=== PATIENT | female | born 1950 | race American Indian/Alaskan Native ===

== ENCOUNTER 2017-08-13 14:36 | Emergency (ER) | payer BC ==
[2017-08-13 14:36] VITALS: BMI 42.0
[2017-08-13 15:03] VITALS: RESP 20; TEMP 98.6
[2017-08-13] MEDS ORDERED: Oxycodone/Acetaminophen 5/325 mg Tab PO STA (15:35)
--- NOTE | 2017-08-13 16:03 | ED PDOC ---
Arrival/HPI - General Chief Complaint: Lower Extremity Problem/Injury Time Seen by Provider: 08/13/17 15:35 Historian: Patient - History of Present Illness Narrative History of Present Illness (Text): 08/13/17 15:59 66-year-old female presents today with a 5 day history of left leg pain. Patient states she has pain in the left hip as well as the left thigh and calf. Patient denies fevers or chills. She denies any recent trauma or injury. Patient states she has a tingling sensation in the left great toe. Patient states she's been taking Naprosyn for pain without improvement. Patient denies back pain c/o shooting pain intermittently in left buttock. No abdominal pain. Denies fevers or chills. No other complaints. Time/Duration: Other (5 days) Quality: Aching, Tightness Severity Level: 5 Past Medical History - Provider Review Nursing Documentation Reviewed: Yes - Travel History Have you recently traveled outside [place] w/in the past 3 mons?: No - Infectious Disease Hx of Infectious Diseases: None - Reproductive Menopause: Yes - Cardiac Hx Hypertension: Yes - Pulmonary Hx Respiratory Disorders: No - Neurological Hx Migraine: Yes - HEENT Hx HEENT Disorder: No - Renal Hx Renal Disorder: No - Endocrine/Metabolic Hx Diabetes Mellitus Type 1: Yes - Hematological/Oncological Hx Blood Disorders: No - Integumentary Hx Dermatological Disorder: No - Musculoskeletal/Rheumatological Hx Falls: Yes - Gastrointestinal Hx Gastrointestinal Disorders: No - Genitourinary/Gynecological Hx Genitourinary Disorders: No Other/Comment: ovarian tumor surgery - Psychiatric Hx Psychophysiologic Disorder: No Hx Substance Use: No - Surgical History Other/Comment: oophrectomy - Anesthesia Hx Anesthesia: Yes Hx Anesthesia Reactions: No Hx Malignant Hyperthermia: No - Suicidal Assessment Feels Threatened In Home Enviroment: No Family/Social History - Physician Review Nursing Documentation Reviewed: Yes Family/Social History: Unknown Family HX Smoking Status: Former Smoker Hx Alcohol Use: No Hx Substance Use: No Allergies/Home Meds Allergies/Adverse Reactions: Allergies No Known Allergies Allergy (Verified 08/13/17 15:03) Home Medications: Home Meds Medication Instructions Recorded Confirmed Cilostazol 100 mg PO BID 04/28/13 08/13/17 Glimepiride 4 mg PO BID 04/28/13 08/13/17 Hydralazine 50 mg PO BID 04/28/13 08/13/17 Bisoprolol/HCTZ [Ziac 5 MG-6.25 MG] 1 tab PO DAILY 07/18/16 08/13/17 Naproxen [Naprosyn] 500 mg PO BID 07/18/16 08/13/17 Ranolazine [Ranexa] 500 mg PO BID PRN 07/18/16 08/13/17 metFORMIN [glucOPHAGE] 500 mg PO BID 07/18/16 08/13/17 Review of Systems - Review of Systems Constitutional: absent: Fatigue, Fevers Respiratory: absent: SOB, Cough Cardiovascular: absent: Chest Pain, Palpitations Gastrointestinal: absent: Abdominal Pain, Nausea, Vomiting Genitourinary Female: absent: Dysuria, Frequency, Hematuria Musculoskeletal: Arthralgias (left leg pain, left hip pain). absent: Back Pain , Neck Pain Skin: absent: Rash, Pruritis Neurological: absent: Headache, Dizziness Psychiatric: absent: Anxiety, Depression Physical Exam Vital Signs Reviewed: Yes Vital Signs Temp Pulse Resp BP Pulse Ox 08/13/17 18:39 80 20 134/78 99 08/13/17 14:58 98.6 F 85 20 155/84 H 98 Temperature: Afebrile Blood Pressure: Hypertensive Pulse: Regular Respiratory Rate: Normal Appearance: Positive for: Well-Appearing, Non-Toxic, Comfortable Pain Distress: None Mental Status: Positive for: Alert and Oriented X 3 - Systems Exam Head: Present: Atraumatic Neck: Present: Normal Range of Motion Respiratory/Chest: Present: Clear to Auscultation, Good Air Exchange. No: Respiratory Distress, Accessory Muscle Use Cardiovascular: Present: Regular Rate and Rhythm, Normal S1, S2. No: Murmurs Abdomen: No: Tenderness, Distention, Rebound, Guarding Back: Present: Normal Inspection. No: CVA Tenderness, Midline Tenderness, Paraspinal Tenderness Upper Extremity: Present: Normal Inspection Lower Extremity: Present: Normal Inspection, CALF TENDERNESS, NORMAL PULSES, Normal ROM, Tenderness (left leg; + ttp over anterior thigh; full rom of hip with pain, full rom of knee; + calf tenderness; no erythema; no edema. sensation and distal pulses intact. cap refill <2. ), Neurovascularly Intact, Capillary Refill < 2 s, Other (no erythema noted to groin, no lymphadenopathy; + ttp over left sciatic foramen). No: Swelling, Erythema, Deformity, Temperature Abnormalties Neurological: Present: GCS=15, Speech Normal, Motor Func Grossly Intact, Normal Sensory Function, Normal Cerebellar Funct, Norm Deep Tendon Reflexes Skin: Present: Warm, Dry, Normal Color. No: Rashes Psychiatric: Present: Alert, Oriented x 3 Medical Decision Making ED Course and Treatment: 08/13/17 16:03 66-year-old female with history of nontraumatic left leg pain. shooting from buttock into thigh intermittent. Alert and Oriented in no distress stable vital signs Percocet given for pain X-ray of the left hip:Findings: Examination limited by habitus. Degenerative changes of the included lower lumbar spine. Bilateral hip joint space narrowing. No acute displaced fracture or dislocation identified. Sacroiliac joints appear intact. Soft tissues appear unremarkable. No evidence of radiopaque foreign body. Vascular calcifications. Pelvic calcifications, likely phleboliths. Nonspecific calcification within the left abdomen at the L3-L4 level measuring approximately 8 mm. Impression: No acute displaced fracture or dislocation evident. If high clinical index of suspicion, suggest cross-sectional imaging for further evaluation. Otherwise, if symptoms persist or if there is continued clinical concern, x-ray follow-up in 7-10 days should be considered. Additional findings as above. Venous duplex of the left lower extremity: no dvt Patient reassessment: pt feeling better after medications. discussed all results in depth with patient; advised f/u with PMD and orthopedist. advised immediate return if symptoms worsen,persist or if new symptoms develop. Patient verbalizes understanding of discharge instructions and need for immediate followup. all aspects of this case were discussed the attending of record. impression; leg pain, hip pain Motrin every 6 hours as needed for pain Flexeril one tablet every 8 hours as needed for muscle spasms: May cause drowsiness Percocet one tablet every 6 hours as needed for moderate to severe pain: May cause drowsiness Followup with the orthopedist within the next 2 days Followup with primary care physician within the next 2 days Return if symptoms worsen persist or if new symptoms develop - RAD Interpretation Radiology Orders: 08/13/17 15:35 DUPLEX LOWER EXTRM VEIN LEFT [US] Stat 08/13/17 15:36 Hip Left [HIP MIN 2V W/ PELVIS LT] [RAD] Stat - Medication Orders Current Medication Orders: Discontinued Medications Ketorolac Tromethamine (Toradol) 60 mg IM STAT STA Stop: 08/13/17 15:36 Last Admin: 08/13/17 16:07 Dose: 60 mg MAR Pain Assessment Document 08/13/17 16:07 EQ (Rec: 08/13/17 16:07 EQ [facility] [id number] Pain Reassessment Is this a pain reassessment? No Sleep Is patient sleeping during reassessment? No Presence of Pain Presence of Pain Yes IM Administration Charges Document 08/13/17 16:07 EQ (Rec: 08/13/17 16:07 EQ [place] [id number]) Charges for Administration # of IM Administrations 1 Oxycodone/Acetaminophen (Percocet 5/325 Mg Tab) 1 tab PO STAT STA Stop: 08/13/17 15:36 Last Admin: 08/13/17 16:07 Dose: 1 tab MAR Pain Assessment Document 08/13/17 16:07 EQ (Rec: 08/13/17 16:07 EQ [place] [id number]) Pain Reassessment Is this a pain reassessment? No Sleep Is patient sleeping during reassessment? No Presence of Pain Presence of Pain Yes Disposition/Present on Arrival - Present on Arrival Any Indicators Present on Arrival: No History of DVT/PE: No History of Uncontrolled Diabetes: No Urinary Catheter: No History of Decub. Ulcer: No History Surgical Site Infection Following: None - Disposition Have Diagnosis and Disposition been Completed?: Yes Diagnosis: Leg pain Disposition: HOME/ ROUTINE Disposition Time: 18:14 Patient Plan: Discharge Condition: GOOD Discharge Instructions (ExitCare): Leg Pain (ED) Additional Instructions: Motrin every 6 hours as needed for pain Flexeril one tablet every 8 hours as needed for muscle spasms: May cause drowsiness Percocet one tablet every 6 hours as needed for moderate to severe pain: May cause drowsiness Followup with the orthopedist within the next 2 days Followup with primary care physician within the next 2 days Return if symptoms worsen persist or if new symptoms develop Prescriptions: Cyclobenzaprine [Cyclobenzaprine HCl] 10 mg PO Q8 #10 tab Ibuprofen [Motrin] 600 mg PO Q6H PRN #20 tab PRN Reason: pain/fever reduction oxyCODONE/Acetaminophen [Percocet 5/325 mg Tab] 1 tab PO Q6H PRN #6 tab PRN Reason: moderate to severe pain Referrals: Fernandes,Edelmira I, MD [Staff Provider] - Follow up with primary Anirudh Adame DO [Staff Provider] - Follow up with primary Adrián Marroquin MD [Staff Provider] - Follow up with primary Forms: [employer] (B[place]ladeshi), WORK NOTE
--- NOTE | 2017-08-13 17:04 | RAD ---
Indication: hip pain/leg pain Left hip with pelvis radiographs Comparison: None available Findings: Examination limited by habitus. Degenerative changes of the included lower lumbar spine. Bilateral hip joint space narrowing. No acute displaced fracture or dislocation identified. Sacroiliac joints appear intact. Soft tissues appear unremarkable. No evidence of radiopaque foreign body. Vascular calcifications. Pelvic calcifications, likely phleboliths. Nonspecific calcification within the left abdomen at the L3-L4 level measuring approximately 8 mm. Impression: No acute displaced fracture or dislocation evident. If high clinical index of suspicion, suggest cross-sectional imaging for further evaluation. Otherwise, if symptoms persist or if there is continued clinical concern, x-ray follow-up in 7-10 days should be considered. Additional findings as above.
[2017-08-13 18:40] VITALS: BP 134/78; PULSE 80; O2SAT 99
--- NOTE | 2017-08-14 09:15 | US ---
PROCEDURE: Left lower extremity venous US HISTORY: Leg pain and swelling. Evaluate for DVT. PHYSICIAN(S): Cecilio Nagy MD. TECHNIQUE: Duplex sonography and color-flow Doppler with graded compression were used to evaluate the deep venous system of the left lower extremity. FINDINGS: The visualized deep venous system of the left lower extremity is sonographically normal and compressible. Normal wave forms and augmentation are seen. There is no sonographic evidence for deep venous thrombosis in the visualized segments of the left lower extremity. IMPRESSION: 1. No sonographic evidence for deep venous thrombosis in the visualized segments of the left lower extremity.
== END 2017-08-13 18:40 | disposition home or self-care (01) ==
LOC: ED 14:36
DX: M79.605 Pain in left leg (principal); I10 Essential (primary) hypertension; Z87.891 Personal history of nicotine dependence
CPT/HCPCS: 73502; 93971; 96372; 99283; J1885

== ENCOUNTER 2017-10-24 17:34 | Emergency (ER) | payer MEDICARE, BC ==
[2017-10-24 17:34] VITALS: BMI 42.0
--- NOTE | 2017-10-24 19:58 | ED PDOC ---
Arrival/HPI - General Chief Complaint: Headache Time Seen by Provider: 10/24/17 17:52 Historian: Patient - History of Present Illness Narrative History of Present Illness (Text): 10/24/17 19:54 67yr old female presents today with head injury x 2 in the past 3 days. pt states 3 days ago she fell off a chair and hit her head. pt denies LOC at that time but states she felt dazed afterwards. pt states after the injury she felt dizzy. pt states since hitting her head she has felt dizzy and felt like occasionally she was having difficulty concentrating. pt states she was feeling dizzy for 2 days PRIOR to hitting her head. pt states to make things worse yesterday she bent over to pick something up and hit her head again. pt denies cp or sob. denies abdominal pain. pt c/o occasional nausea. pt denies neck or back pain. no other complaints. Past Medical History - Provider Review Nursing Documentation Reviewed: Yes - Travel History Have you recently traveled outside [place] w/in the past 3 mons?: No - Infectious Disease Hx of Infectious Diseases: None - Cardiac Hx Cardiac Disorders: Yes Hx Hypertension: Yes - Pulmonary Hx Respiratory Disorders: No - Neurological Hx Neurological Disorder: Yes Hx Headaches: Yes - HEENT Hx HEENT Disorder: No - Renal Hx Renal Disorder: No - Endocrine/Metabolic Hx Endocrine Disorders: Yes Hx Diabetes Mellitus Type 2: Yes - Hematological/Oncological Hx Blood Disorders: No - Integumentary Hx Dermatological Disorder: No - Musculoskeletal/Rheumatological Hx Musculoskeletal Disorders: Yes Hx Falls: Yes - Gastrointestinal Hx Gastrointestinal Disorders: No - Genitourinary/Gynecological Hx Genitourinary Disorders: No Other/Comment: ovarian tumor surgery - Psychiatric Hx Psychophysiologic Disorder: No Hx Substance Use: No - Surgical History Other/Comment: oophrectomy - Anesthesia Hx Anesthesia: Yes Hx Anesthesia Reactions: No Hx Malignant Hyperthermia: No - Suicidal Assessment Feels Threatened In Home Enviroment: No Family/Social History - Physician Review Nursing Documentation Reviewed: Yes Family/Social History: Unknown Family HX Smoking Status: Former Smoker Hx Alcohol Use: No Hx Substance Use: No Allergies/Home Meds Allergies/Adverse Reactions: Allergies No Known Allergies Allergy (Verified 10/24/17 17:48) Home Medications: Home Meds Medication Instructions Recorded Confirmed Cilostazol 100 mg PO BID 04/28/13 10/24/17 Glimepiride 4 mg PO BID 04/28/13 10/24/17 Hydralazine 50 mg PO BID 04/28/13 10/24/17 Bisoprolol/HCTZ [Ziac 5 MG-6.25 MG] 1 tab PO DAILY 07/18/16 10/24/17 Naproxen [Naprosyn] 500 mg PO BID 07/18/16 10/24/17 Ranolazine [Ranexa] 500 mg PO BID PRN 07/18/16 10/24/17 metFORMIN [glucOPHAGE] 500 mg PO BID 07/18/16 10/24/17 Review of Systems - Review of Systems Constitutional: absent: Fatigue, Fevers Eyes: absent: Vision Changes, Photophobia, Eye Pain ENT: absent: Sore Throat, Sinus Congestion Respiratory: absent: SOB, Cough Cardiovascular: absent: Chest Pain, Palpitations Gastrointestinal: absent: Abdominal Pain, Nausea, Vomiting Genitourinary Female: absent: Dysuria Musculoskeletal: absent: Arthralgias, Back Pain, Neck Pain Skin: absent: Rash, Pruritis Neurological: Headache, Dizziness Psychiatric: absent: Anxiety, Depression, Suicidal Ideation Physical Exam Vital Signs Reviewed: Yes Vital Signs Temp Pulse Resp BP Pulse Ox 10/25/17 02:07 97.6 F 61 22 136/64 100 10/24/17 21:48 97.6 F 68 19 138/73 100 10/24/17 17:50 98.5 F 74 16 163/98 H 99 Temperature: Afebrile Blood Pressure: Hypertensive Pulse: Regular Respiratory Rate: Normal Appearance: Positive for: Well-Appearing, Non-Toxic, Comfortable Pain Distress: None Mental Status: Positive for: Alert and Oriented X 3 - Systems Exam Head: Present: Atraumatic. No: Tenderness Pupils: Present: PERRL Extroacular Muscles: Present: EOMI Conjunctiva: Present: Normal Ears: Present: Normal, NORMAL TM Mouth: Present: Moist Mucous Membranes Pharnyx: Present: Normal Nose (External): Present: Atraumatic Neck: Present: Normal Range of Motion, Trachea Midline. No: MIDLINE TENDERNESS , Paraspinal Tenderness Respiratory/Chest: Present: Clear to Auscultation, Good Air Exchange. No: Respiratory Distress, Accessory Muscle Use Cardiovascular: Present: Regular Rate and Rhythm, Normal S1, S2. No: Murmurs Abdomen: No: Tenderness, Distention, Rebound, Guarding Back: Present: Normal Inspection. No: Midline Tenderness, Paraspinal Tenderness Upper Extremity: Present: Normal ROM Lower Extremity: Present: Normal ROM Neurological: Present: GCS=15, Speech Normal Skin: Present: Warm, Dry, Normal Color. No: Rashes Psychiatric: Present: Alert, Oriented x 3 Medical Decision Making ED Course and Treatment: 10/24/17 20:02 67yr old female with headache and dizziness. pt with dizziness prior to fall 3 days ago. continued dizziness. ct head: FINDINGS: Brain: Minimal atrophy. No intracranial hemorrhage. No mass. No edema. Ventricles: No hydrocephalus. Bones/joints: No acute fracture. Soft tissues: Unremarkable. Vasculature: Atherosclerotic disease of intracranial arteries. Sinuses: No acute sinusitis. Mastoid air cells: No mastoid effusion. Orbits: Unremarkable as visualized. IMPRESSION: 1. No intracranial hemorrhage. 2. Incidental/non-acute findings are described above. 10/24/17 21:38 pt reassessment; pt non toxic well appearing; no distress. 10/24/17 23:56 cbc; wnl cmp; glucose 154 trop; wnl cxr; wnl ekg; normal sinus rhythm at [address] elevations LVH QTC 418 pt with continued dizziness. refusing medications for pain; c/o dizziness prior to fall. will admit observational status for dizziness. asa given pO Case discussed with Dr. Casarez accepts observational status admission to telemetry for dizziness all aspects of this case were discussed the attending of record. Impression: Dizziness Admit observational status - Lab Interpretations Lab Results: 10/24/17 23:11 10/24/17 23:11 Lab Results 10/24/17 23:11: WBC 7.6, RBC 4.24, Hgb 12.2, Hct 36.9, MCV 87.0, MCH 28.8, MCHC 33.1, RDW 12.7, Plt Count 227, MPV 10.4, Gran % 37.0 L, Lymph % (Auto) 52.9 H, [place] % (Auto) 8.4 H, Eos % (Auto) 1.6, Baso % (Auto) 0.1, Gran # 2.83, Lymph # ( Auto) 4.0 H, [place] # (Auto) 0.6, Eos # (Auto) 0.1, Baso # (Auto) 0.01 10/24/17 23:11: Sodium 139, Potassium 3.9, Chloride 98, Carbon Dioxide 27, Anion Gap 18, BUN 9, Creatinine 0.7, Est GFR ( Amer) > 60, Est GFR (Non- Af Amer) > 60, Random Glucose 154 H, Calcium 9.9, Total Bilirubin 0.4, AST 34, ALT 60 H, Alkaline Phosphatase 53, Lactate Dehydrogenase 374, Total Creatine Kinase 97, Troponin I < 0.01, Total Protein 7.5, Albumin 4.2, Globulin 3.3, Albumin/Globulin Ratio 1.3 - RAD Interpretation Radiology Orders: 10/24/17 18:22 HEAD W/O CONTRAST [CT] Stat 10/24/17 21:56 CHEST PORTABLE [RAD] Stat - Medication Orders Current Medication Orders: Discontinued Medications Aspirin (Aspirin) 325 mg PO STAT STA Stop: 10/24/17 23:57 Last Admin: 10/25/17 02:07 Dose: 325 mg Disposition/Present on Arrival - Present on Arrival Any Indicators Present on Arrival: No History of DVT/PE: No History of Uncontrolled Diabetes: No Urinary Catheter: No History of Decub. Ulcer: No History Surgical Site Infection Following: None - Disposition Have Diagnosis and Disposition been Completed?: Yes Diagnosis: Dizziness Disposition: HOSPITALIZED Disposition Time: 01:36 Patient Plan: Observation Patient Problems: Current Active Problems Problem Status Onset Dizziness Acute Condition: FAIR
--- NOTE | 2017-10-24 21:17 | CT ---
EXAM: CT Head Without Intravenous Contrast CLINICAL HISTORY: 67 years old, female; Injury or trauma; Fall; Initial encounter; Blunt trauma (contusions or hematomas); Consciousness not specified; Additional info: Headache/dizziness/ head injury TECHNIQUE: Axial computed tomography images of the head/brain without intravenous contrast. All CT scans at this facility use one or more dose reduction techniques, viz.: automated exposure control; ma/kV adjustment per patient size (including targeted exams where dose is matched to indication; i.e. head); or iterative reconstruction technique. Coronal and sagittal reformatted images were created and reviewed. COMPARISON: CT - HEAD W/O CONTRAST 2016-07-18 20:33 FINDINGS: Brain: Minimal atrophy. No intracranial hemorrhage. No mass. No edema. Ventricles: No hydrocephalus. Bones/joints: No acute fracture. Soft tissues: Unremarkable. Vasculature: Atherosclerotic disease of intracranial arteries. Sinuses: No acute sinusitis. Mastoid air cells: No mastoid effusion. Orbits: Unremarkable as visualized. IMPRESSION: 1. No intracranial hemorrhage. 2. Incidental/non-acute findings are described above.
[2017-10-25 00:09] LABS: BASO # 0.01 K/mm3 (0.0-2.0); BASO % 0.1 % (0.0-3.0); EOS # 0.1 (0.0-0.7); EOS % 1.6 % (1.5-5.0); GRAN # 2.83 (1.4-6.5); HEMOGLOBIN 12.2 g/dL (12.0-16.0); LYMPH % 52.9 % (22.0-35.0); MEAN CORPUSCULAR HEMOGLOBIN 28.8 pg (25.0-35.0); MEAN CORPUSCULAR HGB CONC 33.1 g/dl (31.0-37.0); MEAN PLATELET VOLUME 10.4 fl (7.0-11.0); MONO # 0.6 (0.1-0.6); MONO % 8.4 % (1.0-6.0); RBC 4.24 10^6/uL (3.5-6.1); RED CELL DISTRIBUTION WIDTH 12.7 % (11.5-14.5); WHITE BLOOD COUNT 7.6 10^3/ul (4.5-11.0)
[2017-10-25 00:17] LABS: ALB/GLOB RATIO 1.3 (1.1-1.8); ALBUMIN 4.2 g/dL (3.0-4.8); ALT/SGPT 60 U/L (7-56); AST/SGOT 34 U/L (14-36); BLOOD UREA NITROGEN 9 mg/dL (7-21); CALCIUM 9.9 mg/dL (8.4-10.5); GFR AFRICAN-AMERICAN > 60; GFR NON-AFRICAN AMERICAN > 60
[2017-10-25 00:27] LABS: TROPONIN I < 0.01 ng/mL
[2017-10-25 02:49] LABS: URINE BILIRUBIN NEGATIVE (NEGATIVE); URINE BLOOD NEGATIVE (NEGATIVE); URINE GLUCOSE (UA) NEGATIVE (NEGATIVE); URINE LEUKOCYTE ESTERASE NEGATIVE Leu/uL (NEGATIVE); URINE NITRATE NEGATIVE (NEGATIVE); URINE PROTEIN NEGATIVE mg/dL (<30 mg/dL); URINE UROBILINOGEN 0.2 E.U./dL (<1 E.U./dL)
[2017-10-25 02:55] LABS: URINE APPEARANCE CLEAR (CLEAR); URINE COLOR YELLOW (YELLOW)
--- NOTE | 2017-10-25 08:56 | RAD ---
HISTORY: dizziness COMPARISON: No prior. FINDINGS: LUNGS: No active pulmonary disease. PLEURA: No significant pleural effusion identified, no pneumothorax apparent. CARDIOVASCULAR: Normal. OSSEOUS STRUCTURES: No significant abnormalities. VISUALIZED UPPER ABDOMEN: Rounded metallic radiodensities overlying the midline upper abdomen may reflect overlying coin pouch related artifact or may be the ingested foreign bodies. Clinically correlate. OTHER FINDINGS: None. IMPRESSION: No definite acute cardiopulmonary disease appreciable. Artifacts are noted overlying the epigastric region versus retained radiodense foreign bodies. Clinically correlate further.
--- NOTE | 2017-10-25 09:47 | CARD ---
APPROVED REPORT EKG Measurement Heart [id number] <Conclusion> Normal sinus rhythm Possible Left atrial enlargement Leftward axis
[2017-10-25] MEDS ORDERED: Non Formulary Medication (Bisoprolol/Hctz [Ziac 5-6.25 Mg] 1 TAB) PO SCH ×2 (10:00)
[2017-10-25] MEDS ORDERED: HYDRALAZINE 50 MG PO SCH (10:00)
[2017-10-25] MEDS ORDERED: CILOSTAZOL 100 MG PO SCH ×2 (10:00)
[2017-10-25] MEDS ORDERED: Cilostazol 100 mg Tab UD PO SCH (10:00)
[2017-10-25] MEDS ORDERED: GLIMEPIRIDE 4 MG PO SCH (10:00)
[2017-10-25 12:25] VITALS: RESP 18; O2SAT 100
[2017-10-25 12:27] VITALS: BP 105/57; PULSE 69; TEMP 98.1
--- NOTE | 2017-10-25 20:27 | HP ---
HISTORY OF PRESENT ILLNESS: I saw her resting comfortably in the emergency room. I was called down. She comes in with having a head injury 2 times in the past 3 days. She fell off a chair, hit her head. No loss of consciousness. She felt dazed afterwards, a little bit dizzy, difficulty concentrating. Two days prior to that, she also hit her head. She bent over backwards something to pick and hit her head again, so she is here with 2 head injuries in 3 days. PAST MEDICAL HISTORY: She has a history of hypertension, headaches, diabetes, falls, ovarian tumor surgery in the past, oophorectomy. FAMILY HISTORY: Unknown family history. SOCIAL HISTORY: Former smoker. No alcohol, no drugs. ALLERGIES: NO KNOWN DRUG ALLERGIES. MEDICATIONS: She takes cilostazol, glimepiride, hydralazine, naproxen, Ranexa, Glucophage. REVIEW OF SYSTEMS: No fatigue or fevers. No acute vision or hearing change. No photophobia. No eye pain. No sinus congestion. No shortness of breath or cough. No palpitations or chest pain. No abdominal pain, nausea or vomiting. No problems urinating. No arthralgias. No rashes or ulcers. Little headache and dizziness. No anxiety, depression, suicidal ideation. PHYSICAL EXAMINATION: GENERAL: Well-appearing, comfortable at this time. Alert and oriented x3. She slept fairly well last night. VITAL SIGNS: She has a 97.6 temp, 61 pulse, 22 respiratory rate down to 16 respiratory rate, 136/64 blood pressure, 100% O2 sat on room air. HEENT: Head is atraumatic, normocephalic. I do not see any bumps or bruises. Extraocular muscles are intact. Pupils are equal and reactive to light and accommodation. Throat is moist. NECK: Supple. HEART: Regular rate. LUNGS: Clear to auscultation. ABDOMEN: Soft, nontender. Positive bowel sounds. No guarding. No rebound. No CVA tenderness. EXTREMITIES: No edema. NEUROLOGIC: GCS is 15. Speech is normal. Tongue is midline. Equal strength bilaterally. Alert and oriented x3. LABORATORY DATA: She had a bunch of tests done. She had a CAT scan of the head, which showed no intracranial or immediate issues. She had a chest x-ray that is pending. ASSESSMENT AND PLAN: She will have consult with Cardiology and Neurology. She will be put back on the medications. She will get some physical therapy. If it is okay with PT, and Neurology and Cardiology, I will try and send her home later this afternoon. She is for observation with head trauma, but a negative CAT scan of the head. Hopefully she can be discharged later today. Ryder Casarez DO MTDD
--- NOTE | 2017-10-26 01:38 | CON ---
DATE: 10/25/2017 CARDIOLOGY CONSULTATION HISTORY OF PRESENT ILLNESS: The patient is a 67-year-old woman who slipped out of her chair and hit her head. This resulted in some dizziness. No loss of consciousness. PAST MEDICAL HISTORY: Includes a history of diabetes mellitus and hypertension. She is followed by a polysomnographic technician who has done yearly stress test that have all been negative. No previous cardiac history in the past. The patient denies chest pain, denies shortness of breath. SOCIAL HISTORY: The patient does not smoke. REVIEW OF SYSTEMS: Fourteen-point review of systems is reviewed. No cardiac symptomatology is noted. No angina. No shortness of breath. No dizziness. No edema in lower extremities. PHYSICAL EXAMINATION: VITAL SIGNS: Blood pressure is 132/76, heart rate in the 70s. NECK: Negative JVD. LUNGS: Without rales. HEART: S1, S2. EXTREMITIES: Without edema. LABORATORY DATA: Glucose is 154. Troponin is negative x1. The hemoglobin is 12.2. IMPRESSION: 1. Status post head trauma from an accident. 2. No evidence for cardiac disease. 3. Diabetes mellitus. 4. Hypertension. 5. Dizziness. Given these findings, no further cardiac workup is necessary in the emergency room. The patient has a scheduled followup with her polysomnographic technician next week. Cecilio Cloud MD
== END 2017-10-26 07:54 | disposition short-term general hospital (02) ==
LOC: ED 17:34 → UNDOADMOB 10-25 01:34 → ERH 10-25 01:34 → ED 10-26 07:54
DX: R42 Dizziness and giddiness (principal); I10 Essential (primary) hypertension; E11.9 Type 2 diabetes mellitus without complications; Z91.81 History of falling; Z87.891 Personal history of nicotine dependence

== ENCOUNTER 2018-02-22 19:38 | Observation (INO) | payer BC, MEDICARE ==
--- NOTE | 2018-02-22 20:24 | ED PDOC ---
Arrival/HPI - General Chief Complaint: Chest Pain Time Seen by Provider: 02/22/18 19:39 Historian: Patient - History of Present Illness Narrative History of Present Illness (Text): 02/22/18 20:10 Madelaine Hawthorne is a 67 year old female, whose past medical history includes hypertension, diabetes, CAD, and hyperlipidemia, who presents to the Emergency department complaining of chest discomfort yesterday and today. Patient also reports some discomfort to the left lateral neck and stomach discomfort. Patient denies any fever, chills, shortness of breath, cough, nausea, vomiting, diarrhea, back pain, headache, dizziness, or any other complaints. Symptom Onset: Gradual Symptom Course: Unchanged Activities at Onset: Light Context: Home Past Medical History - Provider Review Nursing Documentation Reviewed: Yes - Infectious Disease Hx of Infectious Diseases: None - Cardiac Hx Cardiac Disorders: Yes Hx Hypertension: Yes - Pulmonary Hx Respiratory Disorders: No - Neurological Hx Neurological Disorder: Yes Hx Headaches: Yes - HEENT Hx HEENT Disorder: No - Renal Hx Renal Disorder: No - Endocrine/Metabolic Hx Endocrine Disorders: Yes Hx Diabetes Mellitus Type 2: Yes - Hematological/Oncological Hx Blood Disorders: No - Integumentary Hx Dermatological Disorder: No - Musculoskeletal/Rheumatological Hx Musculoskeletal Disorders: Yes Hx Falls: Yes - Gastrointestinal Hx Gastrointestinal Disorders: No - Genitourinary/Gynecological Hx Genitourinary Disorders: No Other/Comment: ovarian tumor surgery - Psychiatric Hx Psychophysiologic Disorder: No Hx Substance Use: No - Surgical History Other/Comment: oophrectomy - Anesthesia Hx Anesthesia: Yes Hx Anesthesia Reactions: No Hx Malignant Hyperthermia: No - Suicidal Assessment Feels Threatened In Home Enviroment: No Family/Social History - Physician Review Nursing Documentation Reviewed: Yes Family/Social History: Unknown Family HX Smoking Status: Former Smoker Hx Alcohol Use: No Hx Substance Use: No Allergies/Home Meds Allergies/Adverse Reactions: Allergies No Known Allergies Allergy (Verified 10/24/17 17:48) Home Medications: Home Meds Medication Instructions Recorded Confirmed Naproxen [Naprosyn] 500 mg PO BID 07/18/16 02/22/18 Review of Systems - Physician Review All systems were reviewed & negative as marked: Yes - Review of Systems Constitutional: Normal. absent: Fevers Eyes: Normal ENT: Normal Respiratory: Normal. absent: SOB, Cough Cardiovascular: Chest Pain Gastrointestinal: Abdominal Pain. absent: Diarrhea, Nausea, Vomiting Genitourinary Female: Normal. absent: Dysuria, Frequency, Hematuria, Urine Output Changes Musculoskeletal: Neck Pain. absent: Back Pain Skin: Normal. absent: Rash Neurological: Normal. absent: Headache, Dizziness Endocrine: Normal Hemo/Lymphatic: Normal Psychiatric: Normal Physical Exam Vital Signs Reviewed: Yes Vital Signs Temp Pulse Resp Pulse Ox 02/22/18 20:03 98.2 F 64 18 99 Temperature: Afebrile Blood Pressure: Normal Pulse: Regular Respiratory Rate: Normal Appearance: Positive for: Well-Appearing, Non-Toxic, Comfortable Pain Distress: None Mental Status: Positive for: Alert and Oriented X 3 - Systems Exam Head: Present: Atraumatic, Normocephalic Pupils: Present: PERRL Extroacular Muscles: Present: EOMI Conjunctiva: Present: Normal Ears: Present: Normal, NORMAL TM, Normal Canal. No: Erythema, TM Bulging, Fluid , TM Perf Mouth: Present: Moist Mucous Membranes Pharnyx: Present: Normal. No: ERYTHEMA, EXUDATE, TONSILS ENLARGED, Peritonsilar Swelling, Uvular Deviation, Muffled/Hoarse Voice, Strider, Soft Palate/Uvular Edema Nose (External): Present: Atraumatic Nose (Internal): Present: Normal Inspection Neck: Present: Normal Range of Motion. No: Meningeal Signs, MIDLINE TENDERNESS , Paraspinal Tenderness Respiratory/Chest: Present: Clear to Auscultation, Good Air Exchange. No: Respiratory Distress, Accessory Muscle Use Cardiovascular: Present: Regular Rate and Rhythm, Normal S1, S2. No: Murmurs Abdomen: No: Tenderness, Distention, Peritoneal Signs Back: Present: Normal Inspection. No: CVA Tenderness, Midline Tenderness, Paraspinal Tenderness Upper Extremity: Present: Normal Inspection. No: Cyanosis, Edema Lower Extremity: Present: Normal Inspection, NORMAL PULSES, Normal ROM, Neurovascularly Intact, Capillary Refill < 2 s. No: Edema, CALF TENDERNESS, Cyanosis, Tenderness, Swelling, Erythema, Deformity, Temperature Abnormalties Neurological: Present: GCS=15, CN II-XII Intact, Speech Normal Skin: Present: Warm, Dry, Normal Color. No: Rashes Psychiatric: Present: Alert, Oriented x 3, Normal Insight, Normal Concentration Medical Decision Making ED Course and Treatment: 02/22/18 20:10 Impression: 67 year old female complaining of chest discomfort, left lateral neck discomfort , and stomach discomfort. Plan: -- EKG -- Chest X-ray -- Labs, cardiac enzymes, lipase -- Aspirin -- Reassess and disposition Prior Visits: Notes and results from previous visits were reviewed. On 10/24/2017, pt was seen in the Emergency department s/p head injury with dizziness. Pt was d/c home. Progress Notes: Reviewed EKG, NSR at [address]-segment elevations or depressions, no T-wave inversions, normal intervals. 02/22/18 22:37 Chest X-ray reviewed, shows no acute processes. 02/22/18 22:51 Case discussed with medical parasitologist workers' compensation commissioner, who is aware and agrees with plan. 02/22/18 22:[address] Leyva, who is aware and agrees with plan. Accepts pt in to the hospitalist service. Pt will go to Telemetry observation for chest pain. - Lab Interpretations Lab Results: 02/22/18 21:21 02/22/18 21:21 Lab Results 02/22/18 21:21: WBC 6.7, RBC 4.26, Hgb 12.0, Hct 36.0, MCV 84.5, MCH 28.2, MCHC 33.3, RDW 12.7, Plt Count 236, MPV 10.5 02/22/18 21:21: Sodium 140, Potassium 3.9, Chloride 99, Carbon Dioxide 28, Anion Gap 17, BUN 12, Creatinine 0.6 L, Est GFR ( Amer) > 60, Est GFR ( Non-Af Amer) > 60, Random Glucose 113 H, Calcium 9.7, Total Bilirubin 0.6, AST 37 H, ALT 51, Alkaline Phosphatase 74, Lactate Dehydrogenase 452, Total Creatine Kinase 135, Troponin I < 0.01, Total Protein 7.9, Albumin 4.4, Globulin 3.5, Albumin/Globulin Ratio 1.3, Lipase 142 02/22/18 21:21: PT 12.0, INR 1.05, APTT 27.5 - RAD Interpretation Radiology Orders: 02/22/18 20:16 CHEST PORTABLE [RAD] Stat Oven Operator: ED Physician - EKG Interpretation Interpreted by ED Physician: Yes Type: 12 lead EKG - Medication Orders Current Medication Orders: Discontinued Medications Aspirin (Aspirin) 325 mg PO ONCE STA Stop: 02/22/18 20:19 Morphine Sulfate (Morphine) 2 mg IVP STAT STA Stop: 02/22/18 22:48 Nitroglycerin (Nitro-Bid 2% Oint) 1 ea TOP ONCE STA Stop: 02/22/18 22:48 - Scribe Statement The provider has reviewed the documentation as recorded by the Scribe Ivone Garcia All medical record entries made by the Scribe were at my direction and personally dictated by me. I have reviewed the chart and agree that the record accurately reflects my personal performance of the history, physical exam, medical decision making, and the department course for this patient. I have also personally directed, reviewed, and agree with the discharge instructions and disposition. Disposition/Present on Arrival - Present on Arrival Any Indicators Present on Arrival: No History of DVT/PE: No History of Uncontrolled Diabetes: No Urinary Catheter: No History of Decub. Ulcer: No History Surgical Site Infection Following: None - Disposition Have Diagnosis and Disposition been Completed?: Yes Diagnosis: Chest pain Disposition: HOSPITALIZED Disposition Time: 22:57 Patient Plan: Observation Condition: STABLE Discharge Instructions (ExitCare): Chest Pain (ED) Referrals: Edelmira Fernandes MD [Primary Care Provider] - Follow up with primary Forms: Ice[employer]aker (Japanese)
[2018-02-22 21:27] LABS: MEAN CELL VOLUME 84.5 fl (80.0-105.0); MEAN CORPUSCULAR HEMOGLOBIN 28.2 pg (25.0-35.0); MEAN CORPUSCULAR HGB CONC 33.3 g/dl (31.0-37.0); MEAN PLATELET VOLUME 10.5 fl (7.0-11.0); RBC 4.26 10^6/uL (3.5-6.1); RED CELL DISTRIBUTION WIDTH 12.7 % (11.5-14.5); WHITE BLOOD COUNT 6.7 10^3/ul (4.5-11.0)
[2018-02-22 21:35] LABS: INR 1.05 (0.93-1.08); PARTIAL THROMBOPLASTIN TIME 27.5 Seconds (25.1-36.5)
[2018-02-22 21:37] LABS: ALB/GLOB RATIO 1.3 (1.1-1.8); ALBUMIN 4.4 g/dL (3.0-4.8); ALT/SGPT 51 U/L (7-56); AST/SGOT 37 U/L (14-36); BLOOD UREA NITROGEN 12 mg/dL (7-21); CALCIUM 9.7 mg/dL (8.4-10.5); GFR AFRICAN-AMERICAN > 60; GFR NON-AFRICAN AMERICAN > 60; LIPASE 142 U/L (23-300)
[2018-02-22 21:49] LABS: TROPONIN I < 0.01 ng/mL
[2018-02-22] MEDS ORDERED: Morphine 2 mg/ml ISec IVP STA (22:47)
[2018-02-22] MEDS ORDERED: Nitroglycerin 2% Ointment Foilpak UD TOP STA (22:47)
--- NOTE | 2018-02-22 23:36 | CP.PCM.HP ---
<Leticia Harrison - Last Filed: 02/22/18 23:52> History of Present Illness - History of Present Illness History of Present Illness: HPI: Patient is a 67 year old female with a past medical history of DM, HTN, HLD , CAD, heriated disks in neck, PUD, and PAD, who presents to the ED complaining of chest pain since early this morning. Patient says it started off as pain in her left neck radiating up into her left head. Patient says when she woke up this morning she rolled over onto her right side and started having the left sided chest pain. She describes it as sharp, intermittent, and 7/10 intensity. She denies exacerbating/remitting factors. Patient admits to associated abdominal pain and loose bowels (but not diarrhea) since that time. She denies fever, chills, dizziness, changes in vision/hearing, SOB, palpitations, cough, N &V, constipation, changes in urination, and calf pain/swelling. Specimen Technician: Dr. Greene Neurologist: Prasanth PMH: as above Meds: reviewed in EMR Allergies: NKDA SH: denies tobacco, alcohol, and drug use Present on Admission - Present on Admission Any Indicators Present on Admission: No Review of Systems - Review of Systems All systems: reviewed and no additional remarkable complaints except (as per HPI ) Past Patient History - Infectious Disease Hx of Infectious Diseases: None - Past Medical History & Family History Past Medical History?: Yes - Past Social History Smoking Status: Former Smoker - CARDIAC Hx Cardiac Disorders: Yes Hx Hypertension: Yes - PULMONARY Hx Respiratory Disorders: No - NEUROLOGICAL Hx Neurological Disorder: Yes - HEENT Hx HEENT Problems: No - RENAL Hx Chronic Kidney Disease: No - ENDOCRINE/METABOLIC Hx Endocrine Disorders: Yes Hx Diabetes Mellitus Type 2: Yes - HEMATOLOGICAL/ONCOLOGICAL Hx Blood Disorders: No - INTEGUMENTARY Hx Dermatological Problems: No - MUSCULOSKELETAL/RHEUMATOLOGICAL Hx Musculoskeletal Disorders: Yes Hx Falls: Yes - GASTROINTESTINAL Hx Gastrointestinal Disorders: No - GENITOURINARY/GYNECOLOGICAL Hx Genitourinary Disorders: No Other/Comment: ovarian tumor surgery - PSYCHIATRIC Hx Psychophysiologic Disorder: No Hx Substance Use: No - SURGICAL HISTORY Other/Comment: oophrectomy - ANESTHESIA Hx Anesthesia: Yes Hx Anesthesia Reactions: No Hx Malignant Hyperthermia: No Meds Allergies/Adverse Reactions: Allergies Allergy/AdvReac Type Severity Reaction Status Date / Time No Known Allergies Allergy Verified 10/24/17 17:48 Physical Exam - Constitutional Appears: Non-toxic, No Acute Distress - Head Exam Head Exam: ATRAUMATIC, NORMAL INSPECTION, NORMOCEPHALIC - Eye Exam Eye Exam: EOMI, Normal appearance, PERRL - ENT Exam ENT Exam: Mucous Membranes Moist - Neck Exam Neck exam: Positive for: Tenderness (paraspinal and midline tenderness throughout but worse on the left) - Respiratory Exam Respiratory Exam: Decreased Breath Sounds (due to body habitus), Clear to Auscultation Bilateral, NORMAL BREATHING PATTERN. absent: Accessory Muscle Use , Rales, Rhonchi, Wheezes, Respiratory Distress - Cardiovascular Exam Cardiovascular Exam: RRR, +S1, +S2. absent: Diastolic murmur, Gallop, Rubs, Systolic Murmur - GI/Abdominal Exam GI & Abdominal Exam: Normal Bowel Sounds, Soft, Tenderness (epigastric). absent : Distended, Mass Additional comments: obese abdomen - Extremities Exam Extremities exam: Positive for: normal capillary refill, normal inspection, pedal pulses present. Negative for: calf tenderness, pedal edema - Back Exam Back exam: NORMAL INSPECTION - Neurological Exam Neurological exam: Alert, Oriented x3 - Psychiatric Exam Psychiatric exam: Normal Affect, Normal Mood - Skin Skin Exam: Dry, Intact, Normal Color, Warm Results - Vital Signs Recent Vital Signs: Last Vital Signs Temp 98.2 F 02/22/18 20:03 Pulse 64 02/22/18 20:03 Resp 18 02/22/18 20:03 BP Pulse Ox 99 02/22/18 20:03 - Labs Result Diagrams: 02/22/18 21:21 02/22/18 21:21 Labs: Laboratory Results - last 24 hr 02/22/18 02/22/18 02/22/18 21:21 21:21 21:21 WBC 6.7 RBC 4.26 Hgb 12.0 Hct 36.0 MCV 84.5 MCH 28.2 MCHC 33.3 RDW 12.7 Plt Count 236 MPV 10.5 PT 12.0 INR 1.05 APTT 27.5 Sodium 140 Potassium 3.9 Chloride 99 Carbon Dioxide 28 Anion Gap 17 BUN 12 Creatinine 0.6 L Est GFR ( Amer) > 60 Est GFR (Non-Af Amer) > 60 Random Glucose 113 H Calcium 9.7 Total Bilirubin 0.6 AST 37 H ALT 51 Alkaline Phosphatase 74 Lactate Dehydrogenase 452 Total Creatine Kinase 135 Troponin I < 0.01 Total Protein 7.9 Albumin 4.4 Globulin 3.5 Albumin/Globulin Ratio 1.3 Lipase 142 Assessment & Plan - Assessment and Plan (Free Text) Assessment: Patient is a 67 year old female with a past medical history of DM, HTN, HLD, CAD , heriated disks in neck, PUD, and PAD, who presents with chest pain Plan: Chest Pain * Troponin in ER negative * ECG in ER shows NSR with no AT segment changes * f/u repeat trops and EKGs * f/u lipid panel * f/u TSH and free T4 * f/u CXR * Cardiology consulted (Dr. Cloud) - help appreciated * ASA 81 daily * Lipitor 40 mg HS History of DM * Accuchecks ACHS * ISS low dose * f/u HbA1c * f/u lipid panel * CC diet History of HTN * Continue home HCTZ 6.25 and hydralazine 50 mg BID * Lopressor 25 BID (hold home bisprolol) * Monitor History of HLD * hold home simvastatin * start atorvastatin 40 mg History of CAD * meds as above History of PAD * patient says she is no longer taking cilostazol 100 mg BID (will hold for now ) History of PUD * Pepcid 20 mg BID Prophylaxis * DVT: Heparin 5000 U Q12H * GI: Pepcid as above <Autumn PACE,Evan - Last Filed: 02/23/18 10:46> Results - Vital Signs Recent Vital Signs: Last Vital Signs Temp 98.4 F 02/23/18 06:00 Pulse 70 02/23/18 10:09 Resp 18 02/23/18 06:00 BP 126/57 L 02/23/18 10:09 Pulse Ox 99 02/23/18 06:00 - Labs Result Diagrams: 02/23/18 03:35 02/23/18 03:35 Labs: Laboratory Results - last 24 hr 02/23/18 02/23/18 02/23/18 03:35 03:35 08:17 WBC 7.3 RBC 3.87 Hgb 11.0 L Hct 32.5 L MCV 84.0 MCH 28.4 MCHC 33.8 RDW 12.7 Plt Count 202 MPV 9.4 Gran % 34.2 L Lymph % (Auto) 55.9 H Barbour % (Auto) 7.1 H Eos % (Auto) 2.7 Baso % (Auto) 0.1 Gran # 2.48 Lymph # (Auto) 4.1 H [place]bour # (Auto) 0.5 Eos # (Auto) 0.2 Baso # (Auto) 0.01 Sodium 137 Potassium 4.1 Chloride 99 Carbon Dioxide 27 Anion Gap 15 BUN 14 Creatinine 0.8 Est GFR ( Amer) > 60 Est GFR (Non-Af Amer) > 60 POC Glucose (mg/dL) 193 H Random Glucose 228 H Calcium 8.9 Phosphorus 4.7 H Magnesium 1.8 Total Bilirubin 0.4 AST 25 ALT 44 Alkaline Phosphatase 59 Lactate Dehydrogenase 361 Total Creatine Kinase 107 Troponin I < 0.01 Total Protein 6.7 Albumin 3.8 Globulin 2.9 Albumin/Globulin Ratio 1.3 Triglycerides 145 Cholesterol 190 LDL Cholesterol Direct 121 HDL Cholesterol 42 1518 09:00 WBC RBC Hgb Hct MCV MCH MCHC RDW Plt Count MPV Gran % Lymph % (Auto) Barbour % (Auto) Eos % (Auto) Baso % (Auto) Gran # Lymph # (Auto) Barbour # (Auto) Eos # (Auto) Baso # (Auto) Sodium Potassium Chloride Carbon Dioxide Anion Gap BUN Creatinine Est GFR ( Amer) Est GFR (Non-Af Amer) POC Glucose (mg/dL) Random Glucose Calcium Phosphorus Magnesium Total Bilirubin AST ALT Alkaline Phosphatase Lactate Dehydrogenase 348 Total Creatine Kinase 103 Troponin I < 0.01 Total Protein Albumin Globulin Albumin/Globulin Ratio Triglycerides Cholesterol LDL Cholesterol Direct HDL Cholesterol Attending/Attestation - Attestation I have personally seen and examined this patient.: Yes I have fully participated in the care of the patient.: Yes I have reviewed all pertinent clinical information: Yes Notes (Text): -I agree with the above H&P (including assessment and plan) completed by the resident physician.
[2018-02-23 01:57] VITALS: BMI 40.8
[2018-02-23 03:44] LABS: BASO # 0.01 K/mm3 (0.0-2.0); BASO % 0.1 % (0.0-3.0); EOS # 0.2 (0.0-0.7); EOS % 2.7 % (1.5-5.0); GRAN # 2.48 (1.4-6.5); GRAN % 34.2 % (50.0-68.0); LYMPH # 4.1 (1.2-3.4); LYMPH % 55.9 % (22.0-35.0); MEAN CORPUSCULAR HEMOGLOBIN 28.4 pg (25.0-35.0); MEAN CORPUSCULAR HGB CONC 33.8 g/dl (31.0-37.0); MEAN PLATELET VOLUME 9.4 fl (7.0-11.0); MONO # 0.5 (0.1-0.6); MONO % 7.1 % (1.0-6.0); RBC 3.87 10^6/uL (3.5-6.1); RED CELL DISTRIBUTION WIDTH 12.7 % (11.5-14.5); WHITE BLOOD COUNT 7.3 10^3/ul (4.5-11.0)
[2018-02-23 04:07] LABS: LDL CHOLESTEROL 121 mg/dL (0-129); TROPONIN I < 0.01 ng/mL
[2018-02-23 04:32] LABS: ALB/GLOB RATIO 1.3 (1.1-1.8); ALBUMIN 3.8 g/dL (3.0-4.8); ALT/SGPT 44 U/L (7-56); AST/SGOT 25 U/L (14-36); BLOOD UREA NITROGEN 14 mg/dL (7-21); CALCIUM 8.9 mg/dL (8.4-10.5); GFR AFRICAN-AMERICAN > 60; GFR NON-AFRICAN AMERICAN > 60; HDL CHOLESTEROL 42 mg/dL (29-60)
[2018-02-23 06:53] VITALS: RESP 18; O2SAT 99
[2018-02-23] MEDS: Insulin Reg-LOW-Coverage SC SCH ×2 (08:36→12:13)
--- NOTE | 2018-02-23 09:13 | RAD ---
HISTORY: chest pain COMPARISON: 10/24/2017 FINDINGS: LUNGS: No active pulmonary disease. PLEURA: No significant pleural effusion identified, no pneumothorax apparent. CARDIOVASCULAR: Normal. OSSEOUS STRUCTURES: No significant abnormalities. VISUALIZED UPPER ABDOMEN: Normal. OTHER FINDINGS: None. IMPRESSION: No active disease.
[2018-02-23 09:38] LABS: TROPONIN I < 0.01 ng/mL
[2018-02-23 10:50] LABS: FREE T4 1.21 ng/dL (0.78-2.19)
[2018-02-23] MEDS ORDERED: RANOLAZINE 500 MG PO PRN (11:13)
[2018-02-23 11:46] VITALS: BP 104/53; PULSE 71; TEMP 97.9
--- NOTE | 2018-02-23 11:47 | CP.PCM.DIS ---
<[place] - Last Filed: 02/23/18 12:33> Provider - Provider Date of Admission: 02/22/18 22:55 Attending physician: Dakota Huerta MD Primary care physician: Edelmira Fernandes MD Time Spent in preparation of Discharge (in minutes): 45 Hospital Course - Lab Results Lab Results: Most Recent Lab Values WBC 7.3 10^3/ul (4.5-11.0) 02/23/18 03:35 RBC 3.87 10^6/uL (3.5-6.1) 02/23/18 03:35 Hgb 11.0 g/dL (12.0-16.0) L 02/23/18 03:35 Hct 32.5 % (36.0-48.0) L 02/23/18 03:35 MCV 84.0 fl (80.0-105.0) 02/23/18 03:35 MCH 28.4 pg (25.0-35.0) 02/23/18 03:35 MCHC 33.8 g/dl (31.0-37.0) 02/23/18 03:35 RDW 12.7 % (11.5-14.5) 02/23/18 03:35 Plt Count 202 10^3/uL (120.0-450.0) 02/23/18 03:35 MPV 9.4 fl (7.0-11.0) 02/23/18 03:35 Gran % 34.2 % (50.0-68.0) L 02/23/18 03:35 Lymph % (Auto) 55.9 % (22.0-35.0) H 02/23/18 03:35 Bath % (Auto) 7.1 % (1.0-6.0) H 02/23/18 03:35 Eos % (Auto) 2.7 % (1.5-5.0) 02/23/18 03:35 Baso % (Auto) 0.1 % (0.0-3.0) 02/23/18 03:35 Gran # 2.48 (1.4-6.5) 02/23/18 03:35 Lymph # (Auto) 4.1 (1.2-3.4) H 02/23/18 03:35 Bath # (Auto) 0.5 (0.1-0.6) 02/23/18 03:35 Eos # (Auto) 0.2 (0.0-0.7) 02/23/18 03:35 Baso # (Auto) 0.01 K/mm3 (0.0-2.0) 02/23/18 03:35 PT 12.0 SECONDS (9.4-12.5) 02/22/18 21:21 INR 1.05 (0.93-1.08) 02/22/18 21:21 APTT 27.5 Seconds (25.1-36.5) 02/22/18 21:21 Sodium 137 mmol/L (132-148) 02/23/18 03:35 Potassium 4.1 mmol/L (3.6-5.0) 02/23/18 03:35 Chloride 99 mmol/L (98-107) 02/23/18 03:35 Carbon Dioxide 27 mmol/L (21-33) 02/23/18 03:35 Anion Gap 15 (10-20) 02/23/18 03:35 BUN 14 mg/dL (7-21) 02/23/18 03:35 Creatinine 0.8 mg/dl (0.7-1.2) 02/23/18 03:35 Est GFR ( Amer) > 60 02/23/18 03:35 Est GFR (Non-Af Amer) > 60 02/23/18 03:35 POC Glucose (mg/dL) 210 mg/dL (65-110) H 02/23/18 11:14 Random Glucose 228 mg/dL (70-110) H 02/23/18 03:35 Calcium 8.9 mg/dL (8.4-10.5) 02/23/18 03:35 Phosphorus 4.7 mg/dL (2.5-4.5) H 02/23/18 03:35 Magnesium 1.8 mg/dL (1.7-2.2) 02/23/18 03:35 Total Bilirubin 0.4 mg/dL (0.2-1.3) 02/23/18 03:35 AST 25 U/L (14-36) 02/23/18 03:35 ALT 44 U/L (7-56) 02/23/18 03:35 Alkaline Phosphatase 59 U/L (38-126) 02/23/18 03:35 Lactate Dehydrogenase 348 U/L (333-699) 02/23/18 09:00 Total Creatine Kinase 103 U/L (35-230) 02/23/18 09:00 Troponin I < 0.01 ng/mL 02/23/18 09:00 Total Protein 6.7 g/dL (5.8-8.3) 02/23/18 03:35 Albumin 3.8 g/dL (3.0-4.8) 02/23/18 03:35 Globulin 2.9 gm/dL 02/23/18 03:35 Albumin/Globulin Ratio 1.3 (1.1-1.8) 02/23/18 03:35 Triglycerides 145 mg/dL (35-160) 02/23/18 03:35 Cholesterol 190 mg/dL (130-200) 02/23/18 03:35 LDL Cholesterol Direct 121 mg/dL (0-129) 02/23/18 03:35 HDL Cholesterol 42 mg/dL (29-60) 02/23/18 03:35 Lipase 142 U/L (23-300) 02/22/18 21:21 Free T4 1.21 ng/dL (0.78-2.19) 02/23/18 09:00 TSH 3rd Generation 1.60 mIU/mL (0.46-4.68) 02/23/18 09:00 - Hospital Course Hospital Course: HPI: Patient is a 67 year old female with a past medical history of DM, HTN, HLD , CAD, heriated disks in neck, PUD, and PAD, who presents to the ED complaining of chest pain since early this morning. Patient says it started off as pain in her left neck radiating up into her left head. Patient says when she woke up this morning she rolled over onto her right side and started having the left sided chest pain. She describes it as sharp, intermittent, and 7/10 intensity. She denies exacerbating/remitting factors. Patient admits to associated abdominal pain and loose bowels (but not diarrhea) since that time. She denies fever, chills, dizziness, changes in vision/hearing, SOB, palpitations, cough, N &V, constipation, changes in urination, and calf pain/swelling. Boiler/Chiller Operator: Dr. Greene Neurologist: Prasanth PMH: as above Meds: reviewed in EMR Allergies: NKDA SH: denies tobacco, alcohol, and drug use Hospital Course:Patient was admitted and labs were drawn. Patient's EKG showed Normal sinus rhythm with no ekg changes. Troponins were negative times 3. Patient was seen by Cardiology who didnt want any further intervention in the hospital and to follow up as an outpatient. Patient was discharged with the following instructions: Imagin.Chest xray:no active disease Discharge Instructions: 1. F/u with PMD Dr. Fernandes within one week of discharge. 2. Continue to take home medications Asprin 81mg PO Daily and other medications for chronic problems. 3. F/u with Dr. Rader within one week of discharge. 4. F/u with Dr. Greene within one week of discharge. 5. Return to hospital for any new or worsening symptoms. Discharge Exam - Head Exam Head Exam: ATRAUMATIC, NORMAL INSPECTION, NORMOCEPHALIC - Eye Exam Eye Exam: EOMI, Normal appearance, PERRL Pupil Exam: NORMAL ACCOMODATION, PERRL. absent: Irregular - ENT Exam ENT Exam: Mucous Membranes Moist, Normal Oropharynx - Respiratory Exam Respiratory Exam: Clear to PA & Lateral, NORMAL BREATHING PATTERN, UNREMARKABLE - Cardiovascular Exam Cardiovascular Exam: REGULAR RHYTHM, +S1, +S2 - GI/Abdominal Exam GI & Abdominal Exam: Normal Bowel Sounds, Unremarkable. absent: Hypoactive Bowel Sounds, Organomegaly - Neurological Exam Neurological exam: Alert, CN II-XII Intact, Oriented x3 - Psychiatric Exam Psychiatric exam: Normal Affect, Normal Mood - Skin Skin Exam: Dry, Intact, Normal Color Discharge Plan - Follow Up Plan Condition: STABLE Disposition: HOME/ ROUTINE Instructions: Migraine Headache (DC), Chest Pain (DC) Additional Instructions: 1. F/u with PMD Dr. Fernandes within one week of discharge. 2. Continue to take home medications Asprin 81mg PO Daily and other medications for chronic problems. 3. F/u with Dr. Rader within one week of discharge. 4. F/u with Dr. Greene within one week of discharge. 5. Return to hospital for any new or worsening symptoms. Referrals: Edelmira Fernandes MD [Primary Care Provider] - <Dakota Huerta - Last Filed: 02/23/18 18:31> Provider - Provider Date of Admission: 02/22/18 22:55 Attending physician: Dakota Huerta MD Primary care physician: Edelmira Fernandes MD Hospital Course - Lab Results Lab Results: Most Recent Lab Values WBC 7.3 10^3/ul (4.5-11.0) 02/23/18 03:35 RBC 3.87 10^6/uL (3.5-6.1) 02/23/18 03:35 Hgb 11.0 g/dL (12.0-16.0) L 02/23/18 03:35 Hct 32.5 % (36.0-48.0) L 02/23/18 03:35 MCV 84.0 fl (80.0-105.0) 02/23/18 03:35 MCH 28.4 pg (25.0-35.0) 02/23/18 03:35 MCHC 33.8 g/dl (31.0-37.0) 02/23/18 03:35 RDW 12.7 % (11.5-14.5) 02/23/18 03:35 Plt Count 202 10^3/uL (120.0-450.0) 02/23/18 03:35 MPV 9.4 fl (7.0-11.0) 02/23/18 03:35 Gran % 34.2 % (50.0-68.0) L 02/23/18 03:35 Lymph % (Auto) 55.9 % (22.0-35.0) H 02/23/18 03:35 Bath % (Auto) 7.1 % (1.0-6.0) H 02/23/18 03:35 Eos % (Auto) 2.7 % (1.5-5.0) 02/23/18 03:35 Baso % (Auto) 0.1 % (0.0-3.0) 02/23/18 03:35 Gran # 2.48 (1.4-6.5) 02/23/18 03:35 Lymph # (Auto) 4.1 (1.2-3.4) H 02/23/18 03:35 Bath # (Auto) 0.5 (0.1-0.6) 02/23/18 03:35 Eos # (Auto) 0.2 (0.0-0.7) 02/23/18 03:35 Baso # (Auto) 0.01 K/mm3 (0.0-2.0) 02/23/18 03:35 PT 12.0 SECONDS (9.4-12.5) 02/22/18 21:21 INR 1.05 (0.93-1.08) 02/22/18 21:21 APTT 27.5 Seconds (25.1-36.5) 02/22/18 21:21 Sodium 137 mmol/L (132-148) 02/23/18 03:35 Potassium 4.1 mmol/L (3.6-5.0) 02/23/18 03:35 Chloride 99 mmol/L (98-107) 02/23/18 03:35 Carbon Dioxide 27 mmol/L (21-33) 02/23/18 03:35 Anion Gap 15 (10-20) 02/23/18 03:35 BUN 14 mg/dL (7-21) 02/23/18 03:35 Creatinine 0.8 mg/dl (0.7-1.2) 02/23/18 03:35 Est GFR ( Amer) > 60 02/23/18 03:35 Est GFR (Non-Af Amer) > 60 02/23/18 03:35 POC Glucose (mg/dL) 210 mg/dL (65-110) H 02/23/18 11:14 Random Glucose 228 mg/dL (70-110) H 02/23/18 03:35 Hemoglobin A1c 8.6 % (4.2-6.5) H 02/23/18 03:35 Calcium 8.9 mg/dL (8.4-10.5) 02/23/18 03:35 Phosphorus 4.7 mg/dL (2.5-4.5) H 02/23/18 03:35 Magnesium 1.8 mg/dL (1.7-2.2) 02/23/18 03:35 Total Bilirubin 0.4 mg/dL (0.2-1.3) 02/23/18 03:35 AST 25 U/L (14-36) 02/23/18 03:35 ALT 44 U/L (7-56) 02/23/18 03:35 Alkaline Phosphatase 59 U/L (38-126) 02/23/18 03:35 Lactate Dehydrogenase 348 U/L (333-699) 02/23/18 09:00 Total Creatine Kinase 103 U/L (35-230) 02/23/18 09:00 Troponin I < 0.01 ng/mL 02/23/18 09:00 Total Protein 6.7 g/dL (5.8-8.3) 02/23/18 03:35 Albumin 3.8 g/dL (3.0-4.8) 02/23/18 03:35 Globulin 2.9 gm/dL 02/23/18 03:35 Albumin/Globulin Ratio 1.3 (1.1-1.8) 02/23/18 03:35 Triglycerides 145 mg/dL (35-160) 02/23/18 03:35 Cholesterol 190 mg/dL (130-200) 02/23/18 03:35 LDL Cholesterol Direct 121 mg/dL (0-129) 02/23/18 03:35 HDL Cholesterol 42 mg/dL (29-60) 02/23/18 03:35 Lipase 142 U/L (23-300) 02/22/18 21:21 Free T4 1.21 ng/dL (0.78-2.19) 02/23/18 09:00 TSH 3rd Generation 1.60 mIU/mL (0.46-4.68) 02/23/18 09:00 Attending/Attestation - Attestation I have personally seen and examined this patient.: Yes I have fully participated in the care of the patient.: Yes I have reviewed all pertinent clinical information, including history, physical exam and plan: Yes Notes (Text): 02/23/18 18:03 Attending note ; Patient seen and examined with resident . Patient is a 67 year old female with a past medical history of DM, HTN, HLD, CAD , herniated disks in neck, PUD, and PAD, who presents to the ED complaining of chest pain since early this morning. Patient with long-standing history of cervical disc problem. Patient has long standing neck pain and some radiation to left arm times. Patient was admitted to telemetry. Cardiac enzymes 3 negative. Cardiology evaluation with Dr. Cloud appreciated. Follow-up with Boiler/Chiller Operator Dr. Greene as outpatient. patient had recent stress test negative. Follow-up with Neurology Dr. Rader. Follow-up with PMD Dr. Edelmira Aranda. 02/23/18 18:31
--- NOTE | 2018-02-23 15:15 | CON ---
DATE: 02/23/2018 CARDIOLOGY CONSULTATION HISTORY OF PRESENT ILLNESS: The patient is a 67-year-old woman who presents with substernal chest discomfort with associated left shoulder pain. Symptoms are now resolved. The patient undergoes a stress test with her mechanical engineering draftsperson every year for similar symptoms which has always been said to be normal. The last one was within the past 10 months. She suffers from hypertension, diabetes mellitus, and obesity. She denies smoking. A 14-point review of systems is reviewed in detail. No additional symptoms are noted. PHYSICAL EXAMINATION: VITAL SIGNS: Blood pressure varies from 114-126 systolic, heart rate is in the 70s. NECK: Negative JVD. LUNGS: Without rales. HEART: Reveals S1, S2. EXTREMITIES: Without edema. LABORATORY DATA: Troponins are negative x3. Glucose is 193. Hemoglobin is 11. IMPRESSION: 1. Chest pain, which has now resolved. 2. Her chest pain symptoms are chronic. 3. History of multiple stress tests in the past by her mechanical engineering draftsperson which are negative. 4. No evidence for acute coronary syndrome. 5. Hypertension. 6. Hypercholesterolemia. 7. Obesity. Given these findings, the patient is stable for discharge, will discontinue telemetry. The patient is agreeable and wants to follow up with her mechanical engineering draftsperson early next week. Cecilio Cloud MD
[2018-02-23] MEDS ORDERED: Naproxen 550 mg Tab PO SCH (18:00)
[2018-02-23] MEDS ORDERED: Cilostazol 100 mg Tab UD PO SCH (18:00)
--- NOTE | 2018-02-23 21:40 | CARD ---
APPROVED REPORT EKG Measurement Heart [id number] <Conclusion> Normal sinus rhythm Possible Left atrial enlargement Borderline ECG
[2018-02-24] MEDS ORDERED: Bisoprolol/Hctz [Ziac 5-6.25 Mg] (HOME MED) PO SCH (10:00)
--- NOTE | 2018-02-26 15:18 | CARD ---
APPROVED REPORT EKG Measurement Heart [id number] <Conclusion> Normal sinus rhythm Normal ECG
== END 2018-02-23 15:09 | disposition home or self-care (01) ==
LOC: ED 19:38 → ERH 22:55 → 2RSO 02-23 01:18
PROVIDERS: ADMIT Internal Medicine; ATTEND Internal Medicine
DX: I25.10 Atherosclerotic heart disease of native coronary artery without angina pectoris (principal); I10 Essential (primary) hypertension; E78.5 Hyperlipidemia, unspecified; E11.9 Type 2 diabetes mellitus without complications; E66.9 Obesity, unspecified; E78.00 Pure hypercholesterolemia, unspecified; Z87.11 Personal history of peptic ulcer disease; Z87.891 Personal history of nicotine dependence
CPT/HCPCS: 36415; 71045; 80053; 80061; 82550; 82948; 83036; 83615; 83690; 83735; 84100; 84439; 84443; 84484; 85025; 85027; 85610; 85730; 93005; 96372; 96374; 99285; G0378; J1644; J2270

== ENCOUNTER 2018-11-19 12:31 | Emergency (ER) | payer BC ==
[2018-11-19 12:32] VITALS: BMI 40.8
[2018-11-19 13:14] VITALS: RESP 18
[2018-11-19] MEDS ORDERED: Oxycodone/Acetaminophen 5/325 mg Tab PO STA (13:50)
--- NOTE | 2018-11-19 14:16 | ED PDOC ---
Arrival/HPI - General Chief Complaint: Lower Extremity Problem/Injury Time Seen by Provider: 11/19/18 13:27 Past Medical History - Infectious Disease Hx of Infectious Diseases: None - Cardiac Hx Cardiac Disorders: Yes (heart attack(2012),CAD) Hx Hypertension: Yes - Pulmonary Hx Respiratory Disorders: No - Neurological Hx Neurological Disorder: Yes (herniated disk) Hx Migraine: Yes - HEENT Hx HEENT Disorder: No - Renal Hx Renal Disorder: No - Endocrine/Metabolic Hx Endocrine Disorders: Yes Hx Diabetes Mellitus Type 2: Yes - Hematological/Oncological Hx Blood Disorders: No - Integumentary Hx Dermatological Disorder: No - Musculoskeletal/Rheumatological Hx Musculoskeletal Disorders: Yes Hx Arthritis: Yes Hx Back Pain: Yes Hx Falls: No Hx Gout: Yes - Gastrointestinal Hx Gastrointestinal Disorders: Yes Hx Gastroesophageal Reflux: Yes Hx Gastrointestinal Ulcer: Yes - Genitourinary/Gynecological Hx Genitourinary Disorders: No Other/Comment: ovarian tumor surgery - Psychiatric Hx Psychophysiologic Disorder: No Hx Substance Use: No - Surgical History Other/Comment: oophrectomy - Anesthesia Hx Anesthesia: Yes Hx Anesthesia Reactions: No Hx Malignant Hyperthermia: No - Suicidal Assessment Feels Threatened In Home Enviroment: No Family/Social History Smoking Status: Former Smoker Hx Alcohol Use: No Hx Substance Use: No Allergies/Home Meds Allergies/Adverse Reactions: Allergies indomethacin Allergy (Verified 11/19/18 13:14) URTICARIA Home Medications: Home Meds Medication Instructions Recorded Confirmed Naproxen [Naprosyn] 500 mg PO BID 07/18/16 02/22/18 Physical Exam Vital Signs Temp Pulse Resp BP Pulse Ox 11/19/18 13:52 78 18 152/78 H 100 11/19/18 12:32 97.6 F 80 18 152/78 H 99 Medical Decision Making - RAD Interpretation Radiology Orders: 11/19/18 13:49 DUPLEX LOWER EXTRM VEIN BILAT [US] Stat - EKG Interpretation EKG Interpretation (Text): 11/19/18 14:15 NSr @ [address] elevations No T wave inversions Interpreted by ED Physician: Yes Type: 12 lead EKG - Medication Orders Current Medication Orders: Discontinued Medications Oxycodone/Acetaminophen (Percocet 5/325 Mg Tab) 1 tab PO STAT STA Stop: 11/19/18 13:51 Disposition/Present on Arrival - Present on Arrival History of DVT/PE: No History of Uncontrolled Diabetes: No Urinary Catheter: No History of Decub. Ulcer: No History Surgical Site Infection Following: None - Disposition
--- NOTE | 2018-11-19 14:17 | ED PDOC ---
Arrival/HPI - General Chief Complaint: Lower Extremity Problem/Injury Time Seen by Provider: 11/19/18 13:27 Historian: Patient - History of Present Illness Narrative History of Present Illness (Text): 11/19/18 14:03 68 year old female, ex-smoker, with a past medical history of arthritis, DM, HTN, HLD, CAD, heriated disks in neck, PUD, and PAD, who presents to the ED for evaluation of left lower extremity pain since 5 days. Patient reports recent air travel last Monday and has been experiencing left leg discomfort since then. Patient describes a shooting pain from left hip down to her left leg, associated with mild intermittent shortness of breath and nausea. Patient denies taking any pain medication at home. Patient denies any other associated somatic complaints. Patient denies any fevers, chills, headache, dizziness, chest pain, cough, abdominal pain, nausea, vomiting, diarrhea, back pain, neck pain, or any other complaints. Patient denies any history of blood clots in the past. Time/Duration: < week Symptom Onset: Gradual Symptom Course: Unchanged Activities at Onset: Light Context: Home Past Medical History - Provider Review Nursing Documentation Reviewed: Yes - Infectious Disease Hx of Infectious Diseases: None - Cardiac Hx Cardiac Disorders: Yes (heart attack(2012),CAD) Hx Hypertension: Yes - Pulmonary Hx Respiratory Disorders: No - Neurological Hx Neurological Disorder: Yes (herniated disk) Hx Migraine: Yes - HEENT Hx HEENT Disorder: No - Renal Hx Renal Disorder: No - Endocrine/Metabolic Hx Endocrine Disorders: Yes Hx Diabetes Mellitus Type 2: Yes - Hematological/Oncological Hx Blood Disorders: No - Integumentary Hx Dermatological Disorder: No - Musculoskeletal/Rheumatological Hx Musculoskeletal Disorders: Yes Hx Arthritis: Yes Hx Back Pain: Yes Hx Falls: No Hx Gout: Yes - Gastrointestinal Hx Gastrointestinal Disorders: Yes Hx Gastroesophageal Reflux: Yes Hx Gastrointestinal Ulcer: Yes - Genitourinary/Gynecological Hx Genitourinary Disorders: No Other/Comment: ovarian tumor surgery - Psychiatric Hx Psychophysiologic Disorder: No Hx Substance Use: No - Surgical History Other/Comment: oophrectomy - Anesthesia Hx Anesthesia: Yes Hx Anesthesia Reactions: No Hx Malignant Hyperthermia: No - Suicidal Assessment Feels Threatened In Home Enviroment: No Family/Social History - Physician Review Nursing Documentation Reviewed: Yes Family/Social History: Unknown Family HX Smoking Status: Former Smoker Hx Alcohol Use: No Hx Substance Use: No Allergies/Home Meds Allergies/Adverse Reactions: Allergies indomethacin Allergy (Verified 11/19/18 13:14) URTICARIA Home Medications: Home Meds Medication Instructions Recorded Confirmed Naproxen [Naprosyn] 500 mg PO BID 07/18/16 02/22/18 Review of Systems - Physician Review All systems were reviewed & negative as marked: Yes - Review of Systems Constitutional: absent: Fevers Respiratory: SOB. absent: Cough Cardiovascular: absent: Chest Pain Gastrointestinal: absent: Abdominal Pain, Diarrhea, Vomiting Genitourinary Female: absent: Dysuria, Hematuria Musculoskeletal: Other (Left leg pain). absent: Back Pain, Neck Pain Skin: absent: Rash Neurological: absent: Headache, Dizziness Endocrine: absent: Diaphoresis Psychiatric: absent: Anxiety Physical Exam Vital Signs Temp Pulse Resp BP Pulse Ox 11/19/18 13:52 78 18 152/78 H 100 11/19/18 12:32 97.6 F 80 18 152/78 H 99 Temperature: Afebrile Blood Pressure: Normal Pulse: Regular Respiratory Rate: Normal Appearance: Positive for: Well-Appearing, Non-Toxic, Comfortable Pain Distress: None Mental Status: Positive for: Alert and Oriented X 3 - Systems Exam Head: Present: Atraumatic, Normocephalic Pupils: Present: PERRL Extroacular Muscles: Present: EOMI Conjunctiva: Present: Normal Respiratory/Chest: Present: Clear to Auscultation, Good Air Exchange. No: Respiratory Distress, Accessory Muscle Use Cardiovascular: Present: Regular Rate and Rhythm, Normal S1, S2. No: Murmurs Abdomen: No: Tenderness, Distention, Peritoneal Signs Back: Present: Pain with Leg Raise (Positive straight left leg test), Other (Tenderness to palpation to left hip. ) Upper Extremity: Present: Normal Inspection. No: Cyanosis, Edema Lower Extremity: Present: Normal Inspection, Normal ROM (able to flex and extend knee bilaterally), Other (No leg asymmetry). No: Edema, CALF TENDERNESS, Deformity Neurological: Present: GCS=15, CN II-XII Intact, Speech Normal Skin: Present: Warm, Dry, Normal Color. No: Rashes Psychiatric: Present: Alert, Oriented x 3, Normal Insight, Normal Concentration Medical Decision Making ED Course and Treatment: 11/19/18 14:03 Impression: 68 year old female presents to the ED for evaluation of left leg pain. Differential Diagnosis included but are not limited to: -- Sciatica pain -- DVT Plan: -- EKG -- D-dimer -- Percocet -- US of Lower Extremity -- Reassess and disposition Prior Visits: Notes and results from previous visits were reviewed. Progress Notes: 11/19/18 14:20 - RAD Interpretation Radiology Orders: 11/19/18 13:49 DUPLEX LOWER EXTRM VEIN BILAT [US] Stat - EKG Interpretation EKG Interpretation (Text): 11/19/18 14:21 EKG reviewed, shows NSR @ 79 bpm, No ST elevations, No T wave inversions. Interpreted by ED Physician: Yes Type: 12 lead EKG - Medication Orders Current Medication Orders: Discontinued Medications Oxycodone/Acetaminophen (Percocet 5/325 Mg Tab) 1 tab PO STAT STA Stop: 11/19/18 13:51 - Scribe Statement The provider has reviewed the documentation as recorded by the Scribe Kenny Adkins. All medical record entries made by the Scribe were at my direction and personally dictated by me. I have reviewed the chart and agree that the record accurately reflects my personal performance of the history, physical exam, medical decision making, and the department course for this patient. I have also personally directed, reviewed, and agree with the discharge instructions and disposition. Disposition/Present on Arrival - Present on Arrival Any Indicators Present on Arrival: No History of DVT/PE: No History of Uncontrolled Diabetes: No Urinary Catheter: No History of Decub. Ulcer: No History Surgical Site Infection Following: None - Disposition Have Diagnosis and Disposition been Completed?: Yes Diagnosis: Sciatica of left side Disposition: HOME/ ROUTINE Disposition Time: 17:26 Patient Plan: Discharge Condition: STABLE Discharge Instructions (ExitCare): Sciatica (DC) Print Language: VINCENTIAN Additional Instructions: All medical record entries made by the Scribe were at my direction and personally dictated by me. I have reviewed the chart and agree that the record accurately reflects my personal performance of the history, physical exam, medical decision making, and the department course for this patient. I have also personally directed, reviewed, and agree with the discharge instructions and disposition. Please follow up with your physician in 1 week Take your medication for your symptoms as needed. Prescriptions: Acetaminophen [Tylenol] 650 mg PO Q6H #12 capsule Lidocaine 5% [Lidoderm] 1 each TP Q12 #5 patch Referrals: Rodney Irvin MD [Staff Provider] - Follow up with primary Forms: [employer] (Moroccan)
[2018-11-19] MEDS ORDERED: Lidocaine 5% Patch TD ONE (16:22)
[2018-11-19 17:05] VITALS: O2SAT 100
--- NOTE | 2018-11-19 17:57 | CARD ---
APPROVED REPORT Date of service: 11/19/2018 EKG Measurement Heart [id number] [id number] <Conclusion> Normal sinus rhythm Normal ECG
[2018-11-19 17:59] VITALS: BP 135/73; PULSE 64; TEMP 98.1
--- NOTE | 2018-11-19 18:37 | US ---
HISTORY: Leg pain and swelling. Evaluate for DVT PHYSICIAN(S): Cecilio Nagy MD. TECHNIQUE: Duplex sonography and color-flow Doppler with graded compression were used to evaluate the deep venous systems of both lower extremities. FINDINGS: The visualized deep venous systems of both lower extremities are sonographically normal and compressible. Normal wave forms and augmentation are seen. There is no sonographic evidence for deep venous thrombosis in the visualized segments of both lower extremities. IMPRESSION: No sonographic evidence for deep venous thrombosis in the visualized segments of both lower extremities.
== END 2018-11-19 18:37 | disposition home or self-care (01) ==
LOC: ED 12:31
DX: M54.32 Sciatica, left side (principal); I10 Essential (primary) hypertension; I25.10 Atherosclerotic heart disease of native coronary artery without angina pectoris; E78.5 Hyperlipidemia, unspecified; E11.9 Type 2 diabetes mellitus without complications; M19.90 Unspecified osteoarthritis, unspecified site; Z87.891 Personal history of nicotine dependence

== ENCOUNTER 2018-12-05 11:38 | Emergency (ER) | payer BC | END 2018-12-05 15:47 | disposition home or self-care (01) | LOC: ED 11:38 ==